=== PATIENT | male | born 1990 | race Caucasian/White ===

== ENCOUNTER 2018-10-31 06:57 | Observation (INO) | payer MEDICAID, SELFPAY ==
[2018-10-31 06:58] VITALS: BP 136/104; PULSE 110; RESP 16; TEMP 36.9; O2SAT 95; BMI 18.6
[2018-10-31 07:01] VITALS: BP 134/90
--- NOTE | 2018-10-31 07:47 | ED.DCSUM_ITS ---
- ER Visit Summary Date of Service: 10/31/18 Chief Complaint: Nausea and vomiting History of Present Illness: The patient is a 28 M who presents because of nausea vomiting for 2 days ago. He reports vomiting greater than 10 times per day. This was substantiated by mother. He reports thirst, dry mouth, orthostatic symptoms and decreased urine output. He reports emesis is yellowish in color. He had dark stool this morning. He took Pepto-Bismol yesterday. The stool is not black nor is it maroon. He denies headache. He denies visual, ocular auditory symptoms. He reports minimal intermittent cough over the past couple of weeks. He reports generalized cramping abdominal pain which he localizes mainly to the periumbilical region. He denies flank or low back pain. He denies hematuria. He denies rash or skin lesions. He is aware of no ill contacts. 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 He is uncertain if any of the [place] may have been contaminated. He does not recall eating anything that may have tasted unusual. Please read written note for complete detail Physical Examination: Patient appears ill. He does not appear toxic. Eyes appear slightly sunken. Pupils equal round reactive. Extra muscle intact sclera is clear is anicteric. TMs normal. Nares patent. Uvula is midline. There is no erythema or exudate. Tongue and buccal mucosa are dry. Trachea is midline. Neck is supple. Heart is rapid and regular without murmur, gallop or rub. Lungs are clear to auscultation with good move air bilaterally. Abdomen is soft scaphoid nontender with slightly diminished bowel sounds. No evidence of umbilical or inguinal hernia. No CVA tenderness noted. There is no rash or dermatologic lesions noted. Neuro exam is nonfocal. Test Results: Electrolyte panel is marked for potassium of 2.9, chloride of 91, CO2 of 27 with an anion gap of 18. BUN and creatinine are 46 and 1.76 respectively. Glucose is slightly elevated 119. Emergency Department Course and Treatment: IV was established. He received 1 L of normal saline and Zofran. Since he clinically is dehydrated and has vomited significantly basic metabolic panel was obtained to assess electrolytes, BUN to creatinine ratio as well as renal function. Treatment Plan: Patient did receive 1 L of normal saline. He has not urinated. Second liter with 20 mg of potassium chloride was ordered at 250 an hour. The hospitalist was paged for observation status medical surgical unit with telemetry monitoring Disposition: 23 observation medical unit with telemetry monitoring Impression: 1. Acute kidney injury 2. Persistent intractable nausea and vomiting 3. Hypokalemia 4. Anion gap acidosis 5. Sinus tachycardia documented on monitor This note was generated with [employer] dictation software. It may contain incorrect words, spelling, and punctuation that were not noted in review of the chart prior to signing ED Disposition - Plan for ED Patient: Referrals: Care Physician,No Primary [Primary Care Provider] -
[2018-10-31] MEDS: Ondansetron 4 MG/2 ML Vial IV ×3 (08:06→20:48)
[2018-10-31] MEDS: 0.9% Normal Saline 1,000 ML 1000 ML IV (08:06)
[2018-10-31 08:17] LABS: Anion Gap 18 (5-15); BUN 46 mg/dL (7-18); BUN/Creat Ratio 26.1 RATIO (10-20); Chloride 91 mmol/L (98-107); Creatinine, Serum 1.76 mg/dL (0.70-1.30); EST Glomerular Filtration Rate 50 mL/min (>60); Est Glom Filt Rate - Afr Amer 61 mL/min (>60); Estimated Creatinine Clearance 56.05 ml/min; Glucose 119 mg/dL (74-106); Potassium 2.9 mmol/L (3.5-5.1); Sodium Level 136 mmol/L (136-145)
[2018-10-31] MEDS: Metoclopramide 10 MG/2 ML Vial 5 MG IV (08:58)
[2018-10-31 09:05] VITALS: BP 124/103; PULSE 90; RESP 20; O2SAT 99
[2018-10-31 10:00] VITALS: BMI 18.3; BMI 18.4
[2018-10-31] MEDS: 0.9% Normal Saline 1,000 ML 500 ML IV (10:22)
[2018-10-31] MEDS: 0.9% Normal Saline 1,000 ML 100 ML IV ×2 (10:23→19:30)
[2018-10-31] MEDS: Potassium Chloride 10mEq/100mL 10 MEQ/100 ML IV.SOLN. 100 MEQ IV BOLUS ×4 (14:27→18:26)
[2018-10-31 14:42] VITALS: BP 127/69; PULSE 64; RESP 18; TEMP 37.2; O2SAT 97
--- NOTE | 2018-10-31 14:46 | PCM.HP.STD ---
Problem List (1) Acute kidney injury Status: Acute (2) Nausea and vomiting Status: Acute History of Present Illness Date of Admission: 10/31/18 Chief Complaint: Nausea vomiting The patient is a 28 year old M with a remote history of asthma presenting after having multiple episodes of nausea and vomiting since Sunday. He was significantly dehydrated when he came into the ER and had an acute kidney injury with an elevated creatinine to 1.75. Denies any fevers or chills, but has had abdominal cramping from his nausea and some abdominal soreness from his repeated emesis. He took Pepto-Bismol for the first time yesterday. He denies any diarrhea at the moment and has not had any black stools. He was also found to have significant hypokalemia with potassium of 2.9 on admission. Past Medical History Allergies No Known Allergies Allergy (Verified 10/31/18 07:00) Home Medications: Ambulatory Orders Medication Instructions Recorded NK 10/31/18 Surgical History: no surgical history Smoking Status: Never smoker Tobacco Use: Non-smoker Alcohol: None Drugs: None - *Family History Maternal History Items: No pertinent history Paternal History Items: No pertinent history Review of Systems Constitutional: Denies: Chills, Fever, Weight Change HEENT: Denies: Head Aches, Sinus Congestion, Sinus Drainage Cardiovascular: Denies: Chest Pain, Palpitations Respiratory: Denies: Cough, Shortness of breath at rest, Sputum production Gastrointestinal: Reports: Nausea, Vomiting. Denies: Abdominal Pain, Diarrhea, Melena Genitourinary: Denies: Dysuria Musculoskeletal: Denies: Joint Pain, Joint Tenderness Skin: Denies: Rash, Wounds Neurological: Denies: Numbness, Tingling, Focal weakness Psychiatric: Denies: Anxiety, Depression Hematologic/ Lymphatic: Denies: Easy Bruising, Easy Bleeding VTE Information - Inpt Only VTE Present on Admission: No Patient Problems: Active and Suspected Problems Acute kidney injury (Acute) Nausea and vomiting (Acute) - Physical Exam General: Alert, Oriented x3, Cooperative, No apparent distress HEENT: Atraumatic, PERRLA, EOMI, Normocephalic Oral: Dry Mucosa Neck: Supple, No JVD Lungs: Clear to auscultation, Normal air movement, No rhonchi, No wheeze, No rales Cardiovascular: Regular rate, Regular Rhythm, Normal S1, Normal S2, No murmurs, No rub noted, No Gallop Abdomen: Soft, Non Tender, Non-Distended, No Hepato-splenomegaly Extremities: No edema, Capillary Refill Less than 3 Seconds Skin: No rashes, No breakdown Neurological: Neuro grossly intact, Sensory exam intact to light touch and pain Psych/Mental Status: Normal Affect, Appropriate Vital Signs Temp Pulse Resp BP Pulse Ox 99.0 F 64 18 127/69 H 97 10/31/18 14:42 10/31/18 14:42 10/31/18 14:42 10/31/18 14:42 10/31/18 14:42 Oxygen Delivery Method Room Air Weight: 135 lb 5.821 oz Body Mass Index (BMI) 18.3 Intake and Output for Last 24 Hours 10/29/18 10/30/18 10/31/18 23:59 23:59 23:59 Intake Total 855 / 855 Output Total 175 / 175 Balance 680 / 680 Laboratory Tests Past 24 Hrs 10/31/18 07:58 Sodium 136 Potassium 2.9 L Chloride 91 L Carbon Dioxide 27.0 Anion Gap 18 H BUN 46 H Creatinine 1.76 H Estim Creat Clear Calc 56.05 Est GFR (MDRD) Af Amer 61 Est GFR (MDRD) Non-Af 50 L BUN/Creatinine Ratio 26.1 H Glucose 119 H Calcium 10.0 Assessment/Plan All Active Problems Acute kidney injury (Acute) Nausea and vomiting (Acute) 1. Dehydration secondary to nausea and vomiting leading to acute kidney injury and hypokalemia -He received 1 L of IV fluids in the ER, bolused him another liter of fluids when he got up to the floor -Continue with normal saline at 100 cc/h -Check BMP and CBC in the morning -Replace potassium DVT: Ambulation Code Visit OBSV E&M: 11538 Initial observation care L2
[2018-10-31 20:00] VITALS: BP 125/73; PULSE 56; RESP 16; TEMP 36.9; O2SAT 100
[2018-10-31 22:00] VITALS: PULSE 56
[2018-11-01 02:00] VITALS: BP 116/67; PULSE 51; RESP 16; TEMP 36.7; O2SAT 99
[2018-11-01] MEDS: proCHLORPERazine 10 MG/2 ML Vial IV ×2 (02:52→09:23)
[2018-11-01 05:34] LABS: Absolute Lymphocyte Count 1.91 X10^3/ul (0.83-4.51); Absolute Neutrophil Count 6.6 X10^3/uL (2.0-7.7); Basophil# 0.02 X10^3/uL; Basophil% 0.2 % (0-1); Eosinophil# 0.01 X10^3/uL; Eosinophils% 0.1 % (0-5); Hematocrit 34.5 % (40-54); Hemoglobin 11.8 g/dl (13.0-16.5); Lymphocyte # 1.91 X10^3/ul (4.0); Lymphocyte % 19.8 % (19-41); Mean Corp Hgb Conc 34.2 g/gl (32-36); Mean Corpuscular Hgb 31.6 pg (27.0-32.0); Mean Corpuscular Volume 92.5 fL (80-94); Mean Platelet Vol. 10.3 fl (6.2-12.0); Monocyte# 1.07 X10^3/uL; Monocyte% 11.1 % (0-10); Neutrophil % 68.6 % (47-70); Platelet Count 221 K/mm3 (150-450); RBC Distribution Width CV 13.1 % (11.6-14.6); RBC Distribution Width SD 42.7 fl (35.1-43.9); Red Blood Count 3.73 M/mm3 (4.6-6.2); White Blood Count 9.6 K/mm3 (4.4-11.0)
[2018-11-01 05:43] LABS: POSITIVE COUNT NO; POSITIVE DIFFERENTIAL NO; POSITIVE MORPHOLOGY NO
[2018-11-01 06:27] LABS: Anion Gap 12 (5-15); BUN 20 mg/dL (7-18); BUN/Creat Ratio 23.4 RATIO (10-20); Calcium,Total 8.2 mg/dL (8.5-10.1); Chloride 105 mmol/L (98-107); Creatinine, Serum 0.85 mg/dL (0.70-1.30); EST Glomerular Filtration Rate 115 mL/min (>60); Est Glom Filt Rate - Afr Amer 140 mL/min (>60); Estimated Creatinine Clearance 114.37 ml/min; Glucose 91 mg/dL (74-106); Potassium 3.7 mmol/L (3.5-5.1); Sodium Level 139 mmol/L (136-145)
[2018-11-01 07:42] VITALS: BP 124/68; PULSE 54; RESP 16; TEMP 36.8; O2SAT 98
[2018-11-01 08:17] LABS: Bedside Glucose 79 mg/dL (70-110)
--- NOTE | 2018-11-01 09:14 | DCINST_ITS ---
- Discharge Diagnoses Current Active Problems: Current Active and Chronic Problems Acute kidney injury (Acute) Nausea and vomiting (Acute) You will use the following diet at home:: Regular Your food should be the consistency of: Regular Your liquids should be the consistency of: Regular/Thin Discharge Activity: Return to Normal Activity Call your doctor if you observe: Fever of 101 or Higher, Shortness of breath, Di zziness, Fainting spells, Chest pain, Increased palpitations (irregular heartbeat) Allergies/Adverse Reactions: Allergies No Known Allergies Allergy (Verified 10/31/18 07:00) Medications to take at Discharge Ondansetron [Zofran Odt] 4 mg PO Q8H PRN PRN #16 tablet 11/01/18 The following prescriptions were given: Ondansetron [Zofran Odt] 4 mg PO Q8H PRN PRN #16 tablet PRN Reason: Nausea Primary Care Physician: Care Physician,No Primary [Primary Care Provider] - Please follow up with your Primary Care Physician in: 3-5 days Test Results: Test results from this visit will be discussed in further detail at your follow- up appointment, if applicable.
--- NOTE | 2018-11-01 09:19 | DS.PCM_ITS ---
Discharge Date and Diagnosis - Problem List Patient Problems: Active and Suspected Problems Acute kidney injury (Acute) Nausea and vomiting (Acute) Date of Admission: 10/31/18 Date of Discharge: 11/01/18 - Primary Discharge Diagnosis Active and Suspected Problems Acute kidney injury (Acute) Nausea and vomiting (Acute) Hospital Course and Treatment Imaging Results: None Consults: None Operations: None Procedures: None Summary of Care Provided: HPI: The patient is a 28 year old M with a remote history of asthma presenting after having multiple episodes of nausea and vomiting since Sunday. He was significantly dehydrated when he came into the ER and had an acute kidney injury with an elevated creatinine to 1.75. Denies any fevers or chills, but has had abdominal cramping from his nausea and some abdominal soreness from his repeated emesis. He took Pepto-Bismol for the first time yesterday. He denies any diarrhea at the moment and has not had any black stools. He was also found to have significant hypokalemia with potassium of 2.9 on admission. Hospital Course: 1. Dehydration secondary to nausea and vomiting leading to acute kidney injury and [id number]-old male with no prior medical history presenting with multiple episodes of emesis over the last couple of days prior to admission. On admission he was found to have an elevated creatinine of 1.75 as well as potassium of 2.9. He was given 2 L of IV fluid as a bolus in the ER and was transitioned to maintenance fluid. On the day of discharge he was tolerating a liquid diet with minimal nausea and his creatinine was 0.8 and his potassium was 3.7. He was discharged home with Zofran and instructions on an appropriate diet. Patient Problems: Active and Suspected Problems Acute kidney injury (Acute) Nausea and vomiting (Acute) Objective: General: Alert, Oriented x3, Cooperative, No apparent distress HEENT: Atraumatic, PERRLA, EOMI, Normocephalic Oral: Moist mucosa Neck: Supple, No JVD Lungs: Clear to auscultation, Normal air movement, No rhonchi, No wheeze, No rales Cardiovascular: Regular rate, Regular Rhythm, Normal S1, Normal S2, No murmurs, No rub noted, No Gallop Abdomen: Soft, Non Tender, Non-Distended, No Hepato-splenomegaly Extremities: No edema, Capillary Refill Less than 3 Seconds Skin: No rashes, No breakdown Neurological: Neuro grossly intact, Sensory exam intact to light touch and pain Psych/Mental Status: Normal Affect, Appropriate - Physical Exam Vital Signs Temp Pulse Resp BP Pulse Ox 98.2 F 54 L 16 124/68 H 98 11/01/18 07:42 11/01/18 07:42 11/01/18 07:42 11/01/18 07:42 11/01/18 07:42 Oxygen Delivery Method Room Air Weight: 135 lb 5.821 oz Body Mass Index (BMI) 18.3 Intake and Output for Last 24 Hours 10/30/18 10/31/18 11/01/18 23:59 23:59 23:59 Intake Total 2249 / 2249 810 / 810 Output Total 750 / 750 200 / 200 Balance 1499 / 1499 610 / 610 Laboratory Tests Past 24 Hrs 11/01/18 11/01/18 05:12 05:12 WBC 9.6 RBC 3.73 L Hgb 11.8 L Hct 34.5 L MCV 92.5 MCH 31.6 MCHC 34.2 RDW 13.1 RDW Differential 42.7 Plt Count 221 MPV 10.3 Immature Gran % (Auto) 0.200 Neut % (Auto) 68.6 Lymph % (Auto) 19.8 [place] % (Auto) 11.1 H Eos % (Auto) 0.1 Baso % (Auto) 0.2 Absolute Neuts (auto) 6.6 Absolute Lymphs (auto) 1.91 Total Counted Not Reportable Sodium 139 Potassium 3.7 Chloride 105 Carbon Dioxide 22.0 Anion Gap 12 BUN 20 H Creatinine 0.85 Estim Creat Clear Calc 114.37 Est GFR (MDRD) Af Amer 140 Est GFR (MDRD) Non-Af 115 BUN/Creatinine Ratio 23.4 H Glucose 91 Calcium 8.2 L POC Glucose 11/01/18 08:05 POC Glucose 79 Discharge Activity: Return to Normal Activity Call your doctor if you observe: Fever of 101 or Higher, Shortness of breath, Dizziness, Fainting spells, Chest pain, Increased palpitations (irregular heartbeat) Home Medications: Medications to take at Discharge Ondansetron [Zofran Odt] 4 mg PO Q8H PRN PRN #16 tablet 11/01/18 Following Prescrptions Were Given to Patient: Ondansetron [Zofran Odt] 4 mg PO Q8H PRN PRN #16 tablet PRN Reason: Nausea Primary Care Physician: Care Physician,No Primary [Primary Care Provider] - Please follow up with your Primary Care Physician in: 3-5 days Disposition: Home Minutes spent on discharge:: 20 Patient Condition:: Good Medical Necessity - Tobacco Use Smoking Status: Never smoker Tobacco Use: Non-smoker Meaningful Use Info Meaningful Use Diagnoses (Choose all that apply): None applicable Code Visit OBSV E&M: 90327 Observation care discharge
[2018-11-01 09:51] VITALS: PULSE 58; RESP 18
[2018-11-01 10:12] VITALS: BP 108/66; PULSE 58; RESP 18; TEMP 36.8; O2SAT 99
== END 2018-11-01 11:05 | disposition home or self-care (01) ==
LOC: ED 07:37 → MS3 09:49
PROVIDERS: Admitting Provider Family Medicine; Emergency Provider Emergency Medicine; Visit Provider Family Medicine
DX: E86.0 Dehydration (principal); N17.9 Acute kidney failure, unspecified; R11.2 Nausea with vomiting, unspecified; J45.909 Unspecified asthma, uncomplicated; E87.6 Hypokalemia; R00.0 Tachycardia, unspecified
CPT/HCPCS: 36415; 80048; 82962; 85025; 96361; 96374; 96375; 96376; 99218; 99282; J7030; A4216; G0378; J2405

== ENCOUNTER 2020-03-30 02:26 | Emergency (ER) | payer MEDICAID, SELFPAY ==
[2018-10-31 10:00] VITALS: BMI 18.3
[2020-03-30 02:27] VITALS: BP 131/83; PULSE 89; RESP 16; TEMP 36.7; O2SAT 97; BMI 19.6
--- NOTE | 2020-03-30 02:36 | ED.VIS.GEN ---
History of Present Illness Chief Complaint: Nausea/Vomiting Informant: Patient Onset: Hours - 6 hours Current Severity: Moderate Maximum Severity: Moderate Narrative: Patient reports nausea and vomiting for the past 6 hours. He denies anything significantly different about his day yesterday. He does work outside in the heat. He denies fever or chills. He has had one episode of diarrhea today. Past Medical History - Allergies and Home Meds Allergies/Adverse Reactions: Allergies No Known Allergies Allergy (Verified 03/30/20 02:31) Primary Care Physician: Care Physician,No Primary [Primary Care Provider] - Past Medical History: None Surgical History: no surgical history Smoking Status: Never smoker - Family History Maternal Family History: Reports: No pertinent history Paternal Family History: Reports: No pertinent history Review of Systems General: Denies: Chills, Fever Eyes: Denies: Visual changes - bilaterally ENT: Denies: Bilateral ear pain Cardiovascular: Denies: Chest pain Respiratory: Denies: Dyspnea, Cough Gastrointestinal: Reports: Nausea, Vomiting, Diarrhea Genitourinary: Denies: Dysuria Musculoskeletal: Denies: Extremity Pain Skin: Denies: Rash Neurological: Denies: Headache Hematologic: Denies: Easy bruising, Easy bleeding Allergy: Denies: Uticaria Physical Exam Vital Signs/Narrative: Vital Signs Temp Pulse Resp BP Pulse Ox 03/30/20 02:27 98.1 F 89 16 131/83 H 97 Inital Vital Signs reviewed: Yes General: Well nourished, Well developed Head: Normocephalic ENT: Moist mucous membranes Neck: Supple Cardiovascular: Regular rate, Regular rhythm Respiratory: No distress, CTA bilaterally Abdomen: Soft, Nontender, Hypoactive bowel sounds Skin: Normal color Neurological: Alert, Oriented x3 Psychological: Normal affect Diagnostic/Tx/Re-eval Laboratory Results 03/30/20 03/30/20 02:33 02:33 WBC 19.1 H RBC 4.83 Hgb 15.2 Hct 44.1 MCV 91.3 MCH 31.5 MCHC 34.5 RDW Std Deviation 42.4 RDW Coeff of Tanika 12.7 Plt Count 349 MPV 10.0 Immature Gran % (Auto) 0.500 Neut % (Auto) 89.9 H Lymph % (Auto) 4.0 L [place] % (Auto) 5.2 Eos % (Auto) 0.0 Baso % (Auto) 0.4 Absolute Neuts (auto) 17.2 H Absolute Lymphs (auto) 0.77 L Nucleated RBC % 0 Sodium 140 Potassium 3.5 Chloride 107 Carbon Dioxide 22.0 Anion Gap 11 BUN 20 H Creatinine 1.34 H Estim Creat Clear Calc 77.03 Est GFR (MDRD) Af Amer 82 Est GFR (MDRD) Non-Af 68 BUN/Creatinine Ratio 14.9 Glucose 139 H Calcium 9.7 - Medical Decision Making Patient is given Zofran and IV fluids. After 1 L patient is reevaluated. He does feel improved. He is able to tolerate p.o. I believe a significant elevation of white count is reactive from his vomiting. Creatinine is bumped, but not as severe as when he was admitted a year ago. He will receive a second liter of IV fluid prior to discharge. He will be given a prescription for Zofran. ED Disposition - Plan for ED Patient: Disposition: Home or Assisted Living Diagnosis: Vomiting Instructions: ED Nausea Vomiting Adult Prescriptions: Ondansetron [Zofran Odt] 4 mg PO Q8H PRN PRN #10 tablet PRN Reason: Nausea Referrals: Amor Fair MD [STAFF PHYSICIAN] - As Needed
[2020-03-30 02:42] LABS: Absolute Lymphocyte Count 0.77 X10^3/uL (0.83-4.51); Absolute Neutrophil Count 17.2 X10^3/uL (2.0-7.7); Basophil# 0.07 X10^3/uL; Basophil% 0.4 % (0-1); Hematocrit 44.1 % (40-54); Hemoglobin 15.2 g/dL (13.0-16.5); Lymphocyte # 0.77 X10^3/ul (4.0); Mean Corp Hgb Conc 34.5 g/dL (32-36); Mean Corpuscular Hgb 31.5 pg (27.0-32.0); Mean Corpuscular Volume 91.3 fL (80-94); Monocyte# 0.99 X10^3/uL; Monocyte% 5.2 % (0-10); NRBC Flagged by Analyzer 0 % (0-5); Neutrophil # 17.21 X10^3/uL (2.7-7.7); Neutrophil % 89.9 % (47-70); Platelet Count 349 K/mm3 (150-450); RBC Distribution Width CV 12.7 % (11.6-14.6); RBC Distribution Width SD 42.4 fl (35.1-43.9); Red Blood Count 4.83 M/mm3 (4.6-6.2); White Blood Count 19.1 K/mm3 (4.4-11.0)
[2020-03-30] MEDS: Ondansetron 4 MG/2 ML Vial IV (02:43)
[2020-03-30] MEDS: 0.9% Normal Saline 1,000 ML 1000 ML IV ×2 (02:44→03:42)
[2020-03-30 02:53] LABS: Anion Gap 11 (5-15); BUN 20 mg/dL (7-18); BUN/Creat Ratio 14.9 RATIO (10-20); Calcium,Total 9.7 mg/dL (8.5-10.1); Chloride 107 mmol/L (98-107); Creatinine, Serum 1.34 mg/dL (0.70-1.30); EST Glomerular Filtration Rate 68 mL/min (>60); Est Glom Filt Rate - Afr Amer 82 mL/min (>60); Estimated Creatinine Clearance 77.03 ml/min; Glucose 139 mg/dL (74-106); Potassium 3.5 mmol/L (3.5-5.1); Sodium Level 140 mmol/L (136-145)
[2020-03-30 04:25] VITALS: RESP 16
== END 2020-03-30 04:26 | disposition home or self-care (01) ==
PROVIDERS: Emergency Provider Emergency Medicine
DX: R11.2 Nausea with vomiting, unspecified (principal)
CPT/HCPCS: 80048; 85025; 96361; 96374; 99283; J7030; A4216; J2405

== ENCOUNTER 2020-03-31 01:42 | Emergency (ER) | payer MEDICAID, SELFPAY ==
[2020-03-30 02:27] VITALS: BMI 19.6
[2020-03-31 01:43] VITALS: BP 136/74; PULSE 72; RESP 16; TEMP 36.3; O2SAT 97; BMI 20.4
--- NOTE | 2020-03-31 01:53 | ED.VIS.GEN ---
History of Present Illness Chief Complaint: Nausea/Vomiting Informant: Patient Onset: Yesterday Current Severity: Mild Maximum Severity: Mild Narrative: Patient presents again with nausea and vomiting. Patient was seen early yesterday morning for similar symptoms. At that time he been working out in the heat all day. He was given Zofran and IV fluids. He is able to tolerate p.o. Patient states he felt pretty well most of the day. He is able to tolerate some crackers for lunch. He was using his Zofran. He laid down around 8 PM last night for a nap and woke at 10 PM. He then started vomiting and continued to do so in spite of using Zofran. He denies fever or chills. He denies abdominal pain, states abdomen just feels queasy. Past Medical History - Allergies and Home Meds Allergies/Adverse Reactions: Allergies No Known Allergies Allergy (Verified 03/31/20 01:43) Primary Care Physician: Care Physician,No Primary [Primary Care Provider] - Past Medical History: None Surgical History: no surgical history Smoking Status: Never smoker - Family History Maternal Family History: Reports: No pertinent history Paternal Family History: Reports: No pertinent history Review of Systems General: Denies: Chills, Fever Eyes: Denies: Visual changes - bilaterally ENT: Denies: Bilateral ear pain Cardiovascular: Denies: Chest pain Respiratory: Denies: Dyspnea Gastrointestinal: Reports: Nausea, Vomiting. Denies: Abdominal pain Genitourinary: Denies: Dysuria Musculoskeletal: Denies: Swelling, Extremity Pain Skin: Denies: Rash Physical Exam Vital Signs/Narrative: Vital Signs Temp Pulse Resp BP Pulse Ox 03/31/20 01:43 97.4 F L 72 16 136/74 H 97 Inital Vital Signs reviewed: Yes General: Well nourished, Well developed Head: Normocephalic ENT: Moist mucous membranes Neck: Supple Cardiovascular: Regular rate, Regular rhythm Respiratory: No distress, CTA bilaterally Abdomen: Soft, Nontender, Hypoactive bowel sounds Extremities: Nontender Skin: Normal color Neurological: Alert, Oriented x3, Normal Strength, Normal Sensation Psychological: Normal affect Diagnostic/Tx/Re-eval Laboratory Results 03/31/20 01:48 Sodium 139 Potassium 3.2 L Chloride 105 Carbon Dioxide 23.0 Anion Gap 11 BUN 16 Creatinine 0.97 Estim Creat Clear Calc 110.35 Est GFR (MDRD) Af Amer 119 Est GFR (MDRD) Non-Af 98 BUN/Creatinine Ratio 16.5 Glucose 116 H Calcium 8.6 - Medical Decision Making Patient was given a liter IV fluids along with Reglan and Benadryl. On repeat evaluation nausea is improved. He is able to tolerate ice chips. He will be given a prescription for Reglan. He already has Zofran at home. Abdominal examination remains benign. ED Disposition - Plan for ED Patient: Disposition: Home or Assisted Living Diagnosis: Vomiting Instructions: ED Nausea Vomiting Adult Prescriptions: Metoclopramide [Reglan] 10 mg PO 4X/DAY PRN #20 tablet PRN Reason: Nausea/Vomiting
[2020-03-31] MEDS: 0.9% Normal Saline 1,000 ML 1000 ML IV (01:57)
[2020-03-31] MEDS: Metoclopramide 10 MG/2 ML Vial IV (01:57)
[2020-03-31] MEDS: DiphenhydrAMINE 50 MG/ML Syringe 25 MG IV (01:57)
[2020-03-31 02:13] LABS: Anion Gap 11 (5-15); BUN 16 mg/dL (7-18); BUN/Creat Ratio 16.5 RATIO (10-20); Calcium,Total 8.6 mg/dL (8.5-10.1); Chloride 105 mmol/L (98-107); Creatinine, Serum 0.97 mg/dL (0.70-1.30); EST Glomerular Filtration Rate 98 mL/min (>60); Est Glom Filt Rate - Afr Amer 119 mL/min (>60); Estimated Creatinine Clearance 110.35 ml/min; Glucose 116 mg/dL (74-106); Potassium 3.2 mmol/L (3.5-5.1); Sodium Level 139 mmol/L (136-145)
--- NOTE | 2020-03-31 02:27 | ED.RN ---
THIS NURSE SPOKE WITH [facility], [facility] WORK[facility] FOR PLACEMENT, WHEN WE GET ACCEPTANCE AND A BED FROM [facility] WE NEED TO CONTACT [facility] SO [facility] CAN SET UP TRANSPORTATION.
[2020-03-31] MEDS: Ondansetron 4 MG/2 ML Vial IV (02:54)
[2020-03-31 03:16] VITALS: BP 129/72; PULSE 76; RESP 16; O2SAT 97
== END 2020-03-31 03:16 | disposition home or self-care (01) ==
PROVIDERS: Emergency Provider Emergency Medicine
DX: R11.2 Nausea with vomiting, unspecified (principal)
CPT/HCPCS: 80048; 96361; 96374; 96375; 99283; J7030; A4216; J2405

== ENCOUNTER 2020-04-01 03:36 | Emergency (ER) | payer MEDICAID, SELFPAY ==
[2020-03-31 01:43] VITALS: BMI 20.4
[2020-04-01 03:38] VITALS: BP 143/76; PULSE 54; RESP 16; TEMP 36.8; O2SAT 97; BMI 20.2
--- NOTE | 2020-04-01 03:43 | ED.DCSUM_ITS ---
- ER Visit Summary Date of Service: 04/01/20 Chief Complaint: Nausea, vomiting, left side pain History of Present Illness: The patient is a 29 M who presents again for nausea and vomiting. He has been seen here the past 2 days for nausea vomiting. He was sent home with Zofran and Reglan. He states he did well throughout the day today. He then woke up early this morning with the nausea and vomiting. He developed a sharp pain in his left side. He denies any fevers. He states that his diarrhea has improved slightly. He is taking nothing for this at home. He had a virtual appointment with the PCP who again reiterated this is likely a gastroenteritis. Patient denies any anterior abdominal pain. Physical Examination: Vital signs reviewed. HEENT exam unremarkable. Heart is regular rate and rhythm without murmurs. Lungs are clear to auscultation. Abdomen is soft and nontender. Extremities reveal no edema. Skin exam normal. Neurologic exam normal. Test Results: None performed Emergency Department Course and Treatment: The patient's physical exam was unremarkable. He has no abdominal tenderness. His vital signs are unremarkable. I do not feel he requires IV fluids. Patient will be given Leela dol and Zofran for his symptoms. He already has Zofran and Reglan that he can take at home. He will take NSAIDs for any discomfort. He will need to follow- up with his PCP. His abdominal exam is benign. I do not feel he requires any imaging studies at this time. Treatment Plan: [] Disposition: Discharge Impression: Gastroenteritis This note was generated with [email or web address] dictation software. It may contain incorrect words, spelling, and punctuation that were not noted in review of the chart prior to signing ED Disposition - Plan for ED Patient: Disposition: Home or Assisted Living Instructions: ED Diet for Vomiting or Diarrhea Adult Referrals: Care Physician,No Primary [NON-STAFF] -
[2020-04-01] MEDS: Ketorolac 30 MG/ML Syringe IV (03:46)
[2020-04-01] MEDS: Ondansetron 4 MG/2 ML Vial IV (03:46)
== END 2020-04-01 04:17 | disposition home or self-care (01) ==
PROVIDERS: Emergency Provider Emergency Medicine; PCP Nurse Practitioner Family
DX: K52.9 Noninfective gastroenteritis and colitis, unspecified (principal)
CPT/HCPCS: 96374; 96375; 99283; A4216; J2405